=== PATIENT | female | born 1965 | race Caucasian/White ===

== ENCOUNTER 2017-05-13 11:48 | Emergency (ER) | payer OTHER ==
[~2017-05-13 11:48] MED LIST: LEVO50TA5 PO; LOVA10TA PO; PRED50TA PO; PROAIR HFA8.5 GM INH; SULF1TAB24 PO; TOPI25TA7 PO
[2017-05-13 13:07] VITALS: BP 117/62
[2017-05-13] MEDS ORDERED: CEPH500T PO (13:16)
--- NOTE | 2017-05-13 13:16 | PHYS DOC ---
Past Medical History Past Medical History: Asthma, High Cholesterol, Hypothyroid Past Surgical History: Cholecystectomy, Hysterectomy, Other Additional Past Surgical Histo: HERNIA REPAIR, ABDOMINAL CYST REMOVED Alcohol Use: None Drug Use: None Adult General Chief Complaint Chief Complaint: SKIN PROBLEM [facility] HPI Patient is a 51 year old female presents to the emergency department stating that she has a sore on the scalp area on the right lower back of the head. She states she's had this area for the last week. Denies fever, chills or any nausea vomiting unsure when her last tetanus immunization occurred. No drainage noted from the site. Review of Systems Review of Systems Constitutional: Denies fever or chills [] Eyes: Denies change in visual acuity, redness, or eye pain [] HENT: Denies nasal congestion or sore throat [] Respiratory: Denies cough or shortness of breath [] Cardiovascular: No additional information not addressed in HPI [] GI: Denies abdominal pain, nausea, vomiting, bloody stools or diarrhea [] : Denies dysuria or hematuria [] Musculoskeletal: Denies back pain or joint pain. Complaint of a sore with redness around a hair follicle on the right lower back of her head Integument: Denies rash or skin lesions [] Neurologic: Denies headache, focal weakness or sensory changes [] Endocrine: Denies polyuria or polydipsia [] Allergies Allergies Allergies Coded Allergies Type Severity Reaction Last Updated Verified No Known Drug Allergies 12/06/15 No Physical Exam Physical Exam Constitutional: Well developed, well nourished, no acute distress, non-toxic appearance. [] HENT: Normocephalic, atraumatic, bilateral external ears normal, oropharynx moist, no oral exudates, nose normal. [] Eyes: PERRLA, EOMI, conjunctiva normal, no discharge. [] Neck: Normal range of motion, no tenderness, supple, no stridor. [] Cardiovascular:Heart rate regular rhythm, no murmur [] Lungs & Thorax: Bilateral breath sounds clear to auscultation [] Skin: Warm, dry, no erythema, no rash. Patient was noted to have an infected hair follicle on the scalp area on the right lower basal part of the head. No drainage or discharge noted from the site. Redness was noted however there does not appear to be any drainage no pustulous, no fluctuation noted Back: No tenderness Extremities: No tenderness, no cyanosis, no clubbing, ROM intact, no edema. [] Neurologic: Alert and oriented X 3, normal motor function, normal sensory function, no focal deficits noted. [] Psychologic: Affect normal, judgement normal, mood normal. [] Current Patient Data Vital Signs Vital Signs Date Time Temp Pulse Resp B/P (MAP) Pulse Ox O2 Delivery O2 Flow Rate FiO2 05/13/17 13:07 98.4 89 16 99 Room Air 98.4 EKG EKG [] Radiology/Procedures Radiology/Procedures [] Course & Med Decision Making Course & Med Decision Making Pertinent Labs and Imaging studies reviewed. (See chart for details) Patient will be provided with a tetanus immunization here in the emergency department. She'll also be provided with Keflex to help with infection. Recommended keeping the area clean and dry. Patient will be discharged home in stable condition signs and symptoms to return back to emergency department as been provided. Patient agrees with discharge instructions treatment regimens and follow-up recommendations. Signs and symptoms to return back to emergency department as been provided. [] Dragon Disclaimer Dragon Disclaimer This electronic medical record was generated, in whole or in part, using a voice recognition dictation system. Departure Departure Impression: Primary Impression: Folliculitis Disposition: 01 HOME, SELF-CARE Condition: STABLE Referrals: RICK LUEVANO (PCP) Patient Instructions: Folliculitis Additional Instructions: Keep the area clean and dry. Clean the site with soap and water twice a day. And apply antibiotic ointment to the area. Medication as prescribed. Tylenol or ibuprofen for pain and discomfort. Follow-up to primary care physician in next 3-5 days. Return back to emergency department signs symptoms of become worse. Scripts Cephalexin (CEPHALEXIN) 500 Mg Tablet 1 TAB PO BID, #20 TAB Prov: MARIE DARNELL APRN 05/13/17 MARIE DARNELL [employer] May 13, 2017 13:16
[2017-05-13] MEDS ORDERED: DIPHTH,PERTUSS(ACELL),TET TOX 0.5 ML DISP.SYRIN. VAX IM ONE (13:30)
== END 2017-05-13 13:54 | disposition home or self-care (01) ==
LOC: ER 11:48
DX: L73.9 Follicular disorder, unspecified (principal); J45.909 Unspecified asthma, uncomplicated; E78.00 Pure hypercholesterolemia, unspecified; E03.9 Hypothyroidism, unspecified; Z90.49 Acquired absence of other specified parts of digestive tract; Z90.710 Acquired absence of both cervix and uterus
CPT/HCPCS: 90471; 90715; 99283-25

== ENCOUNTER 2019-10-05 20:28 | Emergency (ER) | payer OTHER ==
[~2019-10-05] VITALS: Ht 177.8 cm; Wt 96.6 kg
[~2019-10-05 20:28] MED LIST changes: +ALBU2.5V8 INH; +CEPH500T PO; +LEVO500T59 PO; +NAPR-514 PO; -PROAIR HFA8.5 GM INH
[2019-10-05 20:50] VITALS: BP 119/65
[2019-10-05] MEDS ORDERED: NAPROXEN 500 MG TABLET PO STA (20:55)
[2019-10-05] MEDS ORDERED: HYDROcodone/APAP 5/325MG 1 TAB TABLET PO ONE (21:00)
--- NOTE | 2019-10-05 21:22 | RAD ---
Three-view right ankle dated 10/05/2019. No comparison available. Clinical data indication: Pain after fall. FINDINGS: 3 views the right ankle show normal bony alignment. No displaced fracture. No acute osseous or articular abnormality. Talar dome is intact. Diffuse soft tissue swelling. IMPRESSION: No acute radiographic abnormality. Electronically signed by: Anthony Alejandro MD (10/05/2019 9:20 PM) [facility]
[2019-10-05] MEDS ORDERED: NAPR-514 PO (21:53)
--- NOTE | 2019-10-05 21:53 | PHYS DOC ---
Past Medical History Past Medical History: Asthma Additional Past Medical Histor: HEARING IMPAIRED (ALEXISCHARLIE LOVE) Past Surgical History: Cholecystectomy, Hysterectomy, Other Additional Past Surgical Histo: HERNIA REPAIR, ABDOMINAL CYST REMOVED (ALEXISCHARLIE APRN) Alcohol Use: None Drug Use: None (JEANCHARLIE MUNOZ APRN) Adult General Chief Complaint Chief Complaint: LOWEREXTREMITY INJURY HPI HPI Patient is a 54 year old female who presents to the ED today complaining of 10 out of 10 right lateral ankle pain that began today after she fell walking her dog and rolling her ankle. Patient is deaf and does not speak and the son is i nterpreting with sign language (CHARLIE ESPINOZA KATE) Review of Systems Review of Systems Constitutional: Denies fever or chills [] Musculoskeletal: Reports right ankle pain Integument: Denies rash or skin lesions [] Neurologic: Denies headache, focal weakness or sensory changes [] All other systems were reviewed and found to be within normal limits, except as documented in this note. (ALEXISCHARLIE APRN) Current Medications Current Medications Current Medications Medications (Trade) Dose Ordered Sig/Nikolas Start Time Stop Time Status Last Admin Dose Admin Acetaminophen/ Hydrocodone Bitart (Lortab 5/325) 1 tab 1X ONCE 10/05/19 21:00 10/05/19 21:01 DC 10/05/19 21:25 1 TAB Naproxen (Naprosyn) 500 mg 1X STAT 10/05/19 20:55 10/05/19 21:01 DC 10/05/19 21:24 500 MG (ANTHONY WATT DO) Allergies Allergies Allergies Coded Allergies Type Severity Reaction Last Updated Verified No Known Drug Allergies 12/06/15 No (ANTHONY WATT DO) Physical Exam Physical Exam Constitutional: Well developed, well nourished, no acute distress, non-toxic appearance. [] HENT: Normocephalic, atraumatic, bilateral external ears normal, oropharynx moist, no oral exudates, nose normal. [] Eyes: PERRLA, EOMI, conjunctiva normal, no discharge. [] Neck: Normal range of motion, no tenderness, supple, no stridor. [] Cardiovascular:Heart rate regular rhythm, no murmur [] Lungs & Thorax: Bilateral breath sounds clear to auscultation [] Abdomen: Bowel sounds normal, soft, no tenderness, no masses, no pulsatile masses. [] Skin: Warm, dry, no erythema, no rash. [] Back: No tenderness, no CVA tenderness. [] Extremities: No tenderness, no cyanosis, no clubbing, ROM intact, no edema. [] Neurologic: Alert and oriented X 3, normal motor function, normal sensory function, no focal deficits noted. [] Psychologic: Affect normal, judgement normal, mood normal. [] (CHARLIE ESPINOZA APRN) Current Patient Data Vital Signs Vital Signs Date Time Temp Pulse Resp B/P (MAP) Pulse Ox O2 Delivery O2 Flow Rate FiO2 10/05/19 21:25 16 100 Room Air 10/05/19 20:50 98.1 63 119/65 (83) 98.1 (ANTHONY WATT DO) EKG EKG [] (CHARLIE ESPINOZA APRN) Radiology/Procedures Radiology/Procedures []REASON: fall pain PROCEDURE: ANKLE RIGHT 3V Three-view right ankle dated 10/05/2019. No comparison available. Clinical data indication: Pain after fall. FINDINGS: 3 views the right ankle show normal bony alignment. No displaced fracture. No acute osseous or articular abnormality. Talar dome is intact. Diffuse soft tissue swelling. IMPRESSION: No acute radiographic abnormality. Electronically signed by: Anthony Alejandro MD (10/05/2019 9:20 PM) [facility] DICTATED and SIGNED BY: ANTHONY ALEJANDRO MD DATE: 10/05/192119 (CHARLIE ESPINOZA APRN) Course & Med Decision Making Course & Med Decision Making Pertinent Labs and Imaging studies reviewed. (See chart for details) This is a 54-year-old female patient presenting to the ED today with right ankle pain status post falling. Right ankle x-rays interpreted by radiologist are negative for any acute findings. Patient was placed in an air cast by the ED RN, neurovascular exam is intact. Ice elevation encouraged. Diclofenac for pain. Follow-up with orthopedic doctor. (CHARLIE ESPINOZA APRN) Dragon Disclaimer Dragon Disclaimer This electronic medical record was generated, in whole or in part, using a voice recognition dictation system. (CHARLIE ESPINOZA APRN) Departure Departure Impression: Primary Impression: Right ankle sprain Additional Impression: Fall from standing Disposition: 01 HOME, SELF-CARE Condition: STABLE Referrals: RICK LUEVANO (PCP) NIKO PACK MD follow up in 1 week Patient Instructions: Ankle Sprain, Acute, with Phase I Rehab-SportsMed, Fall Prevention and Home Safety Additional Instructions: You were seen for right ankle pain, your right ankle x-rays are negative for any acute findings. Try to ice and elevate the extremity. Take the prescribed medication as needed for pain. Follow-up with your own doctor in the next 1-2 weeks. You can also follow up with the provided orthopedic doctor. Scripts Naproxen (NAPROXEN) 500 Mg Tablet 1 TAB PO BID for pain, #14 TAB 0 Refills Prov: CHARLIE ESPINOZA APRN 10/05/19 Attending Signature Attending Signature I have reviewed the PA/SPRUE KNOCKER's note and plan of care. I was available for consulta tion as needed during the patient's visit in the emergency department. I agree with the clinical impression, plan, and disposition. (ANTHONY WATT DO) Problem Qualifiers Primary Impression: Right ankle sprain Encounter type: initial encounter Involved ligament of ankle: unspecified ligament Qualified Codes: S93.401A - Sprain of unspecified ligament of right ankle, initial encounter Additional Impression: Fall from standing Encounter type: initial encounter Qualified Codes: W19.XXXA - Unspecified fall, initial encounter CHARLIE ESPINOZA APRN Oct 05, 2019 21:53 ANTHONY WATT DO Oct 06, 2019 03:56
== END 2019-10-05 22:12 | disposition home or self-care (01) ==
LOC: ER 20:28
DX: S93.401A Sprain of unspecified ligament of right ankle, initial encounter (principal); J45.909 Unspecified asthma, uncomplicated; W18.39XA Other fall on same level, initial encounter; Y93.K1 Activity, walking an animal; Y92.89 Other specified places as the place of occurrence of the external cause; Y99.8 Other external cause status
CPT/HCPCS: 73610; 99284